=== PATIENT | male | born 1940 | race Caucasian/White ===

== ENCOUNTER 2021-01-01 09:51 | Day surgery (SDC) | payer BC ==
[2021-01-01] VITALS (10 sets, daily range): BP systolic 121–133; BP diastolic 72–84
[~2021-01-01] VITALS: Ht 180.3 cm; Wt 101.1 kg
[~2021-01-01 09:51] MED LIST: ASPI81TA52 PO; CLOP75TA33 PO; COU1T PO; FENO135C PO; GLUC100017 PO; KRIL1CAP12 PO; METO50TA17 PO; MULT-342 PO; NITR0.4T51 SL; ROSU20TA2 PO; SIME125C PO; TRIA1TAB5 PO; WARF2TAB PO; [UNRECOGNIZED DRUG - CODE] PO
[2021-01-01] MEDS ORDERED: normal saline 1,000 ML IV SCH (10:40)
[2021-01-01] MEDS ORDERED: cefazolin/dext.iso 2gm/100ml IV ONE (10:40)
[2021-01-01] MEDS ORDERED: SIME125C PO (11:51)
[2021-01-01] MEDS ORDERED: FLO0.4C PO (11:51)
[2021-01-01] MEDS ORDERED: CARV25TA2 PO (11:51)
[2021-01-01] MEDS ORDERED: midazolam 1 mg/ML 2ml injection ONE (12:50)
[2021-01-01] MEDS ORDERED: ceFAZolin 1000mg inj ONE (12:51)
[2021-01-01] MEDS ORDERED: LIDOcaine 1% W/epiNEPHrine 1:100,000 20ml vial ONE (12:51)
[2021-01-01] MEDS ORDERED: fentaNYL/PF 50MCG/1 ML 2ML syringe ONE (12:51)
[2021-01-01] MEDS ORDERED: HYDROcodone/acetaminophen 5mg/325mg tablet PO PRN (15:20)
[2021-01-01] MEDS ORDERED: HYDROcodone/acetaminophen 10/325mg tab PO PRN (15:20)
[2021-01-01] MEDS ORDERED: vancomycin/NS 1 GM ADD-VANTAGE 250 ML X 1 DOSE IV ONE (15:30)
== END 2021-01-01 18:30 | disposition home or self-care (01) ==
LOC: SSTAY O 09:51
PROVIDERS: ATTEND Internal Medicine Cardiovascular Disease
DX: Z45.010 Encounter for checking and testing of cardiac pacemaker pulse generator [battery] (principal); I42.0 Dilated cardiomyopathy; I48.91 Unspecified atrial fibrillation; R53.83 Other fatigue
CPT/HCPCS: 33228; 93005; 99152; 99153; C1785; J0690; J2250; J3010; J3370; J7030; A4620; A6449

== ENCOUNTER 2023-05-12 09:12 | Day surgery (SDC) | payer BC ==
[2023-05-11 13:40] LABS: BASOPHILS % (AUTO) 0.5 % (0-1); EOSINOPHILS # (AUTO) 0.1 X10'3 (0-0.9); EOSINOPHILS % (AUTO) 1.3 % (0-6); HEMATOCRIT 44.5 % (42.0-52.0); HEMOGLOBIN 14.8 g/dl (14.0-17.9); LYMPHOCYTES # (AUTO) 1.8 X10'3 (1.1-4.8); LYMPHOCYTES % (AUTO) 23.3 % (21-51); MEAN CORPUSCULAR HEMOGLOBIN 29.9 PG (27.0-31.0); MEAN CORPUSCULAR HGB CONC 33.4 g/dL (33.0-36.5); MEAN CORPUSCULAR VOLUME 89.6 FL (78-98); MEAN PLATELET VOLUME 8.2 FL (7.4-10.4); MONOCYTES # (AUTO) 0.5 X10'3 (0-0.9); MONOCYTES % (AUTO) 6.3 % (2-12); NEUTROPHILS # (AUTO) 5.2 X10'3 (1.8-7.7); NEUTROPHILS % (AUTO) 68.6 % (42-75); PLATELET COUNT 152 X10'3 (140-440); RED BLOOD COUNT 4.96 X10'6 (4.70-6.10); RED CELL DISTRIBUTION WIDTH 14.6 % (11.5-14.5); WHITE BLOOD COUNT 7.5 X10'3 (4.5-11.0)
[2023-05-11 13:49] LABS: ALBUMIN 3.9 G/DL (3.4-5.0); ANION GAP 10 (8-16); BLOOD UREA NITROGEN 18 MG/DL (7-18); BUN/CREATININE RATIO 15.5 (10.0-20.0); CALCIUM 9.3 MG/DL (8.5-10.1); CHLORIDE 105 MMOL/L (99-107); CREATININE 1.16 MG/DL (0.60-1.10); GLUCOSE 98 MG/DL (70-104); POTASSIUM 4.5 MMOL/L (3.5-5.1); SODIUM 142 MMOL/L (135-145); eGFR 60 ML/MIN
[2023-05-11 13:54] LABS: APTT 29 SECONDS (22-32); INR 1.1 INR; PROTHROMBIN TIME 11.7 SECONDS (9.0-12.0)
[~2023-05-12] VITALS: Ht 177.8 cm; Wt 95.7 kg
[2023-05-12] VITALS (14 sets, daily range): BP systolic 132–166; BP diastolic 72–89; PULSE 70–133; RESP 16; TEMP 98.3; O2SAT 93–97
[~2023-05-12 09:12] MED LIST changes: +CARV25TA2 PO; -FENO135C PO; +FLO0.4C PO; -METO50TA17 PO; -TRIA1TAB5 PO
[2023-05-12] MEDS ORDERED: NORMAL SALINE IV SCH (09:30)
[2023-05-12] MEDS ORDERED: SODIUM BICARBONATE IV SCH (09:30)
[2023-05-12] MEDS ORDERED: normal saline 1,000 ML IV SCH (09:30)
[2023-05-12] MEDS ORDERED: diphenhydrAMINE 25mg capsule PO PRN (09:30)
[2023-05-12] MEDS ORDERED: DEXTROSE 5% IV SCH (09:30)
[2023-05-12] MEDS ORDERED: LORazepam 0.5 MG tablet PO PRN (09:30)
[2023-05-12] MEDS ORDERED: acetylcysteine 200 MG/ml 4ml vial PO PRN (09:30)
[2023-05-12] MEDS ORDERED: fentaNYL/PF 50MCG/1 ML 2ML syringe ONE (09:49)
[2023-05-12] MEDS ORDERED: iohexol 350MG/ML 100ml bottle IV ONE ×3 (09:49→11:39)
[2023-05-12] MEDS ORDERED: verapamil 2.5 mg/ml inj IV ONE (09:49)
[2023-05-12] MEDS ORDERED: iohexol 350 MG/ML 50ML vial IV ONE ×2 (09:49→11:06)
[2023-05-12] MEDS ORDERED: heparin 1,000unit/ml 10ml vial 10 ML ONE (09:49)
[2023-05-12] MEDS ORDERED: LIDOcaine 1% (10mg/ml)w/preservative inj. 20ml MDV ONE (09:49)
[2023-05-12] MEDS ORDERED: midazolam 1 mg/ML 2ml injection ONE (09:49)
[2023-05-12] MEDS ORDERED: nitroGLYCERIN 500mcg/5mL D5W 5 ML IV ONE ×2 (09:49→10:02)
[2023-05-12] MEDS ORDERED: sodium bicarbonate 1meq/ml syr 150 ML in dextrose 5%-water 1,000 ML IV SCH (10:00)
[2023-05-12] MEDS ORDERED: heparin 25,000 UNIT/250ml bag 250 ML IV ONE (11:29)
[2023-05-12] MEDS ORDERED: clopidogrel 300mg tablet ONE (12:04)
[2023-05-12] MEDS ORDERED: HYDROcodone/acetaminophen 5mg/325mg tablet PO PRN (13:30)
[2023-05-12] MEDS ORDERED: HYDROcodone/acetaminophen 10/325mg tab PO PRN (13:30)
[2023-05-12] MEDS ORDERED: morphine 2 MG/ML inj. syringe IV ONE (13:50)
[2023-05-12] MEDS ORDERED: ondansetron/PF 4mg/2ml inj ONE (18:00)
[2023-05-13] MEDS ORDERED: clopidogrel 75mg tablet PO SCH (08:00)
== END 2023-05-12 20:15 | disposition home or self-care (01) ==
LOC: SSTAY O 09:12
PROVIDERS: ATTEND Internal Medicine Cardiovascular Disease
DX: T82.855A Stenosis of coronary artery stent, initial encounter (principal); I25.810 Atherosclerosis of coronary artery bypass graft(s) without angina pectoris; I10 Essential (primary) hypertension; E78.5 Hyperlipidemia, unspecified; I49.5 Sick sinus syndrome; I48.91 Unspecified atrial fibrillation; I48.92 Unspecified atrial flutter; I42.0 Dilated cardiomyopathy; E66.01 Morbid (severe) obesity due to excess calories; Z68.29 Body mass index [BMI] 29.0-29.9, adult; K21.9 Gastro-esophageal reflux disease without esophagitis; Z98.890 Other specified postprocedural states; Z72.89 Other problems related to lifestyle; Z95.0 Presence of cardiac pacemaker; Z79.01 Long term (current) use of anticoagulants; Z79.899 Other long term (current) drug therapy; Z82.49 Family history of ischemic heart disease and other diseases of the circulatory system; Z80.42 Family history of malignant neoplasm of prostate; Y84.0 Cardiac catheterization as the cause of abnormal reaction of the patient, or of later complication, without mention of misadventure at the time of the procedure; Y92.89 Other specified places as the place of occurrence of the external cause
CPT/HCPCS: 36415; 76937; 80048; 85025; 85347; 85610; 85730; 93005; 93459; 99152; 99153; C1874; C9600; J1644; J2250; J2270; J2405; J3010; J3490; J7030; J7040; Q9967; 93458; A6258; A6402; A6449; C1725; C1751; C1769; C1894

== ENCOUNTER 2024-04-20 09:52 | Outpatient (CLI) | payer BC ==
[~2024-04-20 09:52] MED LIST changes: -ASPI81TA52 PO; -COU1T PO; -SIME125C PO; -WARF2TAB PO; -[UNRECOGNIZED DRUG - CODE] PO; +iohexol 350MG/ML 100ml bottle IV ONE
[2024-04-20 10:53] LABS: ALBUMIN 3.7 G/DL (3.4-5.0); ANION GAP 6 (8-16); BLOOD UREA NITROGEN 18 MG/DL (7-18); BUN/CREATININE RATIO 16.8 (10.0-20.0); CALCIUM 9.1 MG/DL (8.5-10.1); CHLORIDE 103 MMOL/L (99-107); CREATININE 1.07 MG/DL (0.60-1.10); GLUCOSE 99 MG/DL (70-104); SODIUM 137 MMOL/L (135-145); TOTAL CARBON DIOXIDE 28.3 MMOL/L (24-32); eGFR 66 ML/MIN
== END 2024-04-20 23:59 | disposition home or self-care (01) ==
LOC: RAD 09:52
PROVIDERS: ATTEND Internal Medicine Cardiovascular Disease
DX: I71.20 Thoracic aortic aneurysm, without rupture, unspecified (principal); I51.7 Cardiomegaly; M47.813 Spondylosis without myelopathy or radiculopathy, cervicothoracic region; I25.10 Atherosclerotic heart disease of native coronary artery without angina pectoris; R06.02 Shortness of breath
CPT/HCPCS: 36415; 71275; 80048; Q9967